=== PATIENT | male | born 1975 | race Caucasian/White ===

== ENCOUNTER 2017-02-11 22:55 | Emergency (ER) | payer SELFPAY ==
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
[2017-02-12] MEDS ORDERED: KETOROLAC TROMETHAMINE INJ 60 MG/2 ML VIAL IM ONE (05:32)
[2017-02-12 06:01] VITALS: BP 113/65; TEMP 97.5; O2SAT 96
== END 2017-02-12 05:50 | disposition home or self-care (01) ==
LOC: ER 22:55
DX: S00.03XA Contusion of scalp, initial encounter (principal); S00.432A Contusion of left ear, initial encounter; S22.42XA Multiple fractures of ribs, left side, initial encounter for closed fracture; F10.120 Alcohol abuse with intoxication, uncomplicated; Y90.6 Blood alcohol level of 120-199 mg/100 ml; Y09 Assault by unspecified means
CPT/HCPCS: 36415; 70450; 71020; 71101; 72125; 80053; 80320; 85025; J1885

== ENCOUNTER 2017-10-25 12:21 | Emergency (ER) | payer SELFPAY ==
[2017-10-25 12:33] VITALS: BP 113/77; TEMP 96.3; O2SAT 98
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
[2017-10-25] MEDS ORDERED: CLINDAMYCIN HCL CAP 150 MG CAP PO ONE (12:54)
[2017-10-25] MEDS ORDERED: DEXAMETHASONE INJ 4 MG/ML VIAL IM ONE (12:54)
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
== END 2017-10-25 13:52 | disposition home or self-care (01) ==
LOC: ER 12:21
DX: T63.481A Toxic effect of venom of other arthropod, accidental (unintentional), initial encounter (principal)
CPT/HCPCS: 70360; J1100

== ENCOUNTER 2018-10-26 14:35 | Emergency (ER) | payer SELFPAY ==
[2018-10-26] MEDS ORDERED: ASPIRIN (CHEWABLE) 81 MG TAB PO ONE (15:00)
--- NOTE | 2018-10-26 15:06 | ED.PDOC ---
History of Present Illness - General Chief Complaint: Chest Pain/NC Stated Complaint: Intermittent chest pain x 3 months Time Seen by Provider: 10/26/18 14:39 Source: patient Exam Limitations: no limitations - History of Present Illness Initial Comments: Patient presents with acute on chronic chest pain for two days. It is left sided and sharp with radiation to his left arm, side, and left leg. He says he has had it for over a year and it comes and goes. No exacerbating nor alleviating factors that he can articulate directly but he did say that it came on strong today while he was working in the yard. He has had fatigue and occasional dyspnea. 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 He had N/V once yesterday and once today. He says he has had loose stools for 1-2 weeks. No hematochezia. 13 1/2 pack year history of smoking cigarettes, occasional marijuana use, denies history of bipedal edema. Denies DM. He says he cannot sleep on his back without getting short of breath. His father had an AMI at the age of 40. No known hyperlipidemia. Denies cardiac history. No other complaints. Timing/Duration: changing over time, intermittent Severity: moderate Improving Factors: nothing Worsening Factors: nothing Associated Symptoms: other - see HPI Allergies/Adverse Reactions: Allergies NO KNOWN ALLERGY Allergy (Verified 10/26/18 15:01) Review of Systems - Review of Systems Constitutional: States: other - fatigue EENTM: States: no symptoms reported Respiratory: States: see HPI Cardiology: States: see HPI Gastrointestinal/Abdominal: States: see HPI Genitourinary: States: other - has had darker urine recently Musculoskeletal: States: no symptoms reported Skin: States: no symptoms reported Neurological: States: no symptoms reported Endocrine: States: no symptoms reported Hematologic/Lymphatic: States: no symptoms reported Past Medical History (General) - Patient Medical History Hx Seizures: No Hx Stroke: No Hx Dementia: No Hx Asthma: No Hx of COPD: No Hx Cardiac Disorders: No Hx Congestive Heart Failure: No Hx Pacemaker: No Hx Hypertension: No Hx Thyroid Disease: No Hx Diabetes: No Hx Gastroesophageal Reflux: No Hx Renal Disease: No Hx Cancer: No Hx of HIV: No Hx Hepatitis C: No Hx MRSA: No Surgical History: no surgical history - Vaccination History Hx Tetanus, Diphtheria Vaccination: No Hx Influenza Vaccination: Yes Hx Pneumococcal Vaccination: No - Social History Hx Tobacco Use: Yes Hx Alcohol Use: Yes Hx Substance Use: Yes Hx Substance Use Treatment: No Hx Depression: No - Female History Patient is a Female of Child Bearing Age (10 -59 yrs old): No Patient : No Family Medical History - Family History Father Family History: No Known Living Status: Unknown Physical Exam - Physical Exam General Appearance: Alert Eye Exam: bilateral normal Ears, Nose, Throat: normal ENT inspection Neck: non-tender, full range of motion, supple Respiratory: lungs clear, normal breath sounds Cardiovascular/Chest: normal peripheral pulses, regular rate, rhythm, no edema Gastrointestinal/Abdominal: normal bowel sounds, non tender, soft Back Exam: normal inspection, no CVA tenderness Extremity: normal range of motion, non-tender, normal inspection Neurologic: no motor/sensory deficits, alert, normal mood/affect, oriented x 3 Skin Exam: normal color Lymphatic: no adenopathy Progress - Progress Progress: 10/26/18 17:28 Laboratory Tests 10/26/18 10/26/18 10/26/18 15:00 15:00 15:00 WBC 5.0 RBC 4.65 L Hgb 15.5 Hct 44.8 MCV 96.3 H MCH 33.4 H MCHC 34.7 RDW 12.9 Plt Count 113 L MPV 11.1 H Absolute Neuts (auto) 3.30 Absolute Lymphs (auto) 1.30 Absolute Monos (auto) 0.30 Absolute Eos (auto) 0.10 Absolute Basos (auto) 0.00 Neutrophils % 65.8 Lymphocytes % 25.8 Monocytes % 5.8 Eosinophils % 2.2 Basophils % 0.4 PT 9.5 INR 0.95 PTT (SP) 26.0 Sodium 139 Potassium 3.8 Chloride 105 Carbon Dioxide 25 Anion Gap 12.8 BUN 17 Creatinine 0.87 BUN/Creatinine Ratio 19.5 Random Glucose 129 H Serum Osmolality 280.8 Calcium 9.1 Magnesium Total Bilirubin 0.3 AST 18 ALT 27 Alkaline Phosphatase 57 Creatine Kinase 81 CK-MB (CK-2) 1.6 CK-MB (CK-2) % Not Reportable Troponin I < 0.02 B-Natriuretic Peptide Serum Total Protein 6.8 Albumin 4.2 Globulin 2.6 Albumin/Globulin Ratio 1.6 TSH Thyroxine (T4) Urine Color Urine Appearance Urine pH Ur Specific [place] Urine Protein Urine Glucose (UA) Urine Ketones Urine Blood Urine Nitrite Urine Bilirubin Urine Urobilinogen Ur Leukocyte Esterase Urine RBC Urine WBC Ur Epithelial Cells Urine Bacteria Urine Opiates Screen Urine Barbiturates Ur Phencyclidine Scrn U Amphetamin/Meth Scrn U Benzodiazepines Scrn U Cocaine Metab Screen U Cannabinoids Screen 10/26/18 10/26/18 10/26/18 15:00 15:00 15:40 WBC RBC Hgb Hct MCV MCH MCHC RDW Plt Count MPV Absolute Neuts (auto) Absolute Lymphs (auto) Absolute Monos (auto) Absolute Eos (auto) Absolute Basos (auto) Neutrophils % Lymphocytes % Monocytes % Eosinophils % Basophils % PT INR PTT (SP) Sodium Potassium Chloride Carbon Dioxide Anion Gap BUN Creatinine BUN/Creatinine Ratio Random Glucose Serum Osmolality Calcium Magnesium 2.3 Total Bilirubin AST ALT Alkaline Phosphatase Creatine Kinase CK-MB (CK-2) CK-MB (CK-2) % Troponin I B-Natriuretic Peptide 20.8 Serum Total Protein Albumin Globulin Albumin/Globulin Ratio TSH 5.38 Thyroxine (T4) 6.17 Urine Color Urine Appearance Urine pH Ur Specific [place] Urine Protein Urine Glucose (UA) Urine Ketones Urine Blood Urine Nitrite Urine Bilirubin Urine Urobilinogen Ur Leukocyte Esterase Urine RBC Urine WBC Ur Epithelial Cells Urine Bacteria Urine Opiates Screen Negative Urine Barbiturates Negative Ur Phencyclidine Scrn Negative U Amphetamin/Meth Scrn Negative U Benzodiazepines Scrn Negative U Cocaine Metab Screen Negative U Cannabinoids Screen Positive H 10/26/18 15:40 WBC RBC Hgb Hct MCV MCH MCHC RDW Plt Count MPV Absolute Neuts (auto) Absolute Lymphs (auto) Absolute Monos (auto) Absolute Eos (auto) Absolute Basos (auto) Neutrophils % Lymphocytes % Monocytes % Eosinophils % Basophils % PT INR PTT (SP) Sodium Potassium Chloride Carbon Dioxide Anion Gap BUN Creatinine BUN/Creatinine Ratio Random Glucose Serum Osmolality Calcium Magnesium Total Bilirubin AST ALT Alkaline Phosphatase Creatine Kinase CK-MB (CK-2) CK-MB (CK-2) % Troponin I B-Natriuretic Peptide Serum Total Protein Albumin Globulin Albumin/Globulin Ratio TSH Thyroxine (T4) Urine Color Yellow Urine Appearance Clear Urine pH 6.0 Ur Specific [place] 1.025 Urine Protein Negative Urine Glucose (UA) Negative Urine Ketones Negative Urine Blood Negative Urine Nitrite Negative Urine Bilirubin Negative Urine Urobilinogen 0.2 Ur Leukocyte Esterase Negative Urine RBC 0 Urine WBC 0 Ur Epithelial Cells 0 Urine Bacteria 0 Urine Opiates Screen Urine Barbiturates Ur Phencyclidine Scrn U Amphetamin/Meth Scrn U Benzodiazepines Scrn U Cocaine Metab Screen U Cannabinoids Screen ASA 324 mg po x one given. Troponin negative. EKG showed NSR with no ST changes nor T wave inversions. No LBBB. Patient received one liter IV NS. He was likely dehydrated but a cardiac etiology cannot be entirely ruled out. I recommended stress testing with his pcp. He agreed to call tomorrow and get an appointment for this. Care instructions given. E.R. warnings given. Questions were elicited and answered. Patient voiced understanding and agreement with the plan. Departure - Departure Clinical Impression: Chest pain, Dehydration Disposition: Discharge to Home or Self Care Condition: Good Departure Forms: ED Discharge - Pt. Copy, Patient Portal Self Enrollment Instructions: DI for Chest Pain, Dehydration, Adult (DC) Diet: other - increase oral fluids Additional Instructions: Call a family physician of your choice in the morning and get an appointment for stress testing. Increase your oral fluids. Return to the E.R. for worsening pain, shortness of breath, or new symptoms.
[2018-10-26] MEDS ORDERED: SODIUM CHLORIDE 0.9% 1000ML 1,000 ML IVS ONE (15:46)
--- NOTE | 2018-10-26 15:55 | RAD ---
PROVIDED CLINICAL HISTORY/REASON FOR EXAM: chest pain COMPARISON: 02/11/2017 FINDINGS: Frontal chest radiograph Heart size and pulmonary vessels are within normal limits. There is no pneumothorax or pleural effusion. The lungs are clear bilaterally. The soft tissues are unremarkable. No acute osseous findings. IMPRESSION: No acute cardiopulmonary abnormality. Electronically signed by: Jeovanny Jackson MD 10/26/2018 3:53 PM CDT
[2018-10-26 17:44] VITALS: BP 126/88; TEMP 97; O2SAT 96
== END 2018-10-26 17:40 | disposition home or self-care (01) ==
LOC: ER 14:35
DX: R07.9 Chest pain, unspecified (principal); E86.0 Dehydration; Z87.891 Personal history of nicotine dependence; Z82.49 Family history of ischemic heart disease and other diseases of the circulatory system
CPT/HCPCS: 36415; 71045; 80053; 80307; 81001; 82550; 82553; 83735; 83880; 84436; 84443; 84484; 85025; 85610; 85730; 93005; J7030

== ENCOUNTER → 2019-03-03 | Emergency (ER) | payer SELFPAY | LOC: ER 18:06 | DX: R51 Headache (principal); Z53.21 Procedure and treatment not carried out due to patient leaving prior to being seen by health care provider ==

== ENCOUNTER 2019-09-19 08:51 | Emergency (ER) | payer OTHER ==
--- NOTE | 2019-09-19 09:12 | ED.PDOC ---
History of Present Illness - General Chief Complaint: Respiratory Problem Stated Complaint: Cough, COVID-19 Exposure Time Seen by Provider: 09/19/19 08:54 Source: patient, RN notes reviewed, Vital Signs reviewed Additional Information: The patient is a 43 year old male who presents to the ED for possible COVID-19. He states that he has had close contact with a co-worker who tested positive for COVID-19 yesterday. He complains of nausea/vomiting, shortness of breath, headache and dry cough. No fevers. No diarrhea. No other complaints at this time. He was referred to the ED for COVID testing. - History of Present Illness Allergies/Adverse Reactions: Allergies NO KNOWN ALLERGY Allergy (Verified 10/26/18 15:01) Review of Systems - Review of Systems Constitutional: States: malaise EENTM: States: nose congestion Respiratory: States: cough, short of breath Cardiology: States: no symptoms reported Gastrointestinal/Abdominal: States: nausea, vomiting Genitourinary: States: no symptoms reported Musculoskeletal: States: muscle pain, muscle stiffness Skin: States: no symptoms reported Neurological: States: no symptoms reported Endocrine: States: no symptoms reported Hematologic/Lymphatic: States: no symptoms reported All other Systems: Reviewed and Negative Past Medical History (General) - Patient Medical History Hx Seizures: No Hx Stroke: No Hx Dementia: No Hx Asthma: No Hx of COPD: No Hx Cardiac Disorders: No Hx Congestive Heart Failure: No Hx Pacemaker: No Hx Hypertension: No Hx Thyroid Disease: No Hx Diabetes: No Hx Gastroesophageal Reflux: No Hx Renal Disease: No Hx Cancer: No Hx of HIV: No Hx Hepatitis C: No Hx MRSA: No - Vaccination History Hx Tetanus, Diphtheria Vaccination: No Hx Influenza Vaccination: Yes Hx Pneumococcal Vaccination: No - Social History Hx Tobacco Use: Yes Hx Alcohol Use: Yes Hx Substance Use: Yes Hx Substance Use Treatment: No Hx Depression: No - Female History Patient : No Family Medical History - Family History Father Family History: No Known Living Status: Unknown Physical Exam - Physical Exam General Appearance: Alert, Comfortable, No apparent distress ENT Exam: normal ENT inspection Neck: non-tender, full range of motion, supple Respiratory: chest non-tender, lungs clear, no accessory muscle use Cardiovascular/Chest: normal peripheral pulses, regular rate, rhythm, no murmur Gastrointestinal/Abdominal: non tender, soft, no organomegaly Extremity: normal range of motion, non-tender, normal inspection, no pedal edema 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 Will check CXR, swab for COVID. 09/19/19 09:58 Patient assessed as above. COVID test is pending. CXR results reviewed. There is no orthopnea or history of cardiovascular disease. The findings most probably represent atypical COVID infection. No increased work of breathing or hypoxia.Will continue outpatient symptomatic management and he will follow up with his PCP. Discussed importance of continued isolation. Return indications reviewed. - EKG/XRAY/CT Xray Comments: Coarse interstitial thickening, pulmonary edema vs atypical infection Departure - Departure Clinical Impression: Lower respiratory tract infection, Suspected COVID-19 virus infection Time of Disposition: 10:00 Disposition: Discharge to Home or Self Care Condition: Fair Departure Forms: ED Discharge - Pt. Copy, Patient Portal Self Enrollment Instructions: Coronavirus Disease 2019 (COVID-19), Acute Bronchitis, Adult (DC) Diet: resume usual diet Activity: increase activity as tolerated Additional Instructions: Follow up with your primary care provider in 1-2 weeks. Return to the Emergency Department with any worsening symptoms, questions or concerns.
--- NOTE | 2019-09-19 09:52 | RAD ---
EXAM DESCRIPTION: Chest,1 View CLINICAL HISTORY: 43 years Male, cough, fever COMPARISON: 10/26/2018 TECHNIQUE: Single view radiograph of the chest. IMPRESSION: Normal size cardiac silhouette. Bilateral perihilar fullness and coarse interstitial lung markings probably representing underlying vascular congestion and pulmonary edema. Atypical infection not excluded but felt to be less likely. No pleural effusion or pneumothorax. Thoracic spondylosis. Electronically signed by: Rohith Cuevas MD 09/19/2019 9:50 AM CDT
[2019-09-19 10:43] VITALS: BP 151/109; TEMP 98.6; O2SAT 98
== END 2019-09-19 10:41 | disposition home or self-care (01) ==
LOC: ER 08:51
DX: J22 Unspecified acute lower respiratory infection (principal); R11.2 Nausea with vomiting, unspecified; R06.02 Shortness of breath; R05 Cough; R51 Headache; F17.200 Nicotine dependence, unspecified, uncomplicated; Z20.828 Contact with and (suspected) exposure to other viral communicable diseases